=== PATIENT | female | born 1985 | race Two or more races ===

== ENCOUNTER → 2017-10-05 | Emergency (ER) | payer OTHER ==
[~2017-10-05] VITALS: Ht 162.6 cm; Wt 100.7 kg
[~2017-10-05] MED LIST: BUTALBITAL-ACE1 EAC1 PO; LEVOTHYROXINE88 MCG PO
== END | disposition home or self-care (01) ==
LOC: ER 14:14
DX: I10 Essential (primary) hypertension (principal); G43.909 Migraine, unspecified, not intractable, without status migrainosus

== ENCOUNTER 2018-06-21 02:48 | Emergency (ER) | payer OTHER ==
[~2018-06-21] VITALS: Ht 162.6 cm; Wt 97.5 kg
[2018-06-21] MEDS ORDERED: INTESTINEX680 M1 PO (09:16)
[2018-06-21] MEDS ORDERED: ZANTAC150 MG PO (09:16)
== END 2018-06-21 22:21 | disposition home or self-care (01) ==
LOC: ER 02:48
DX: K29.70 Gastritis, unspecified, without bleeding (principal)

== ENCOUNTER 2019-05-07 07:20 | Inpatient (IN) | payer OTHER ==
[~2019-05-07] VITALS: Ht 162.6 cm; Wt 96.2 kg
[~2019-05-07 07:20] MED LIST changes: +INTESTINEX680 M1 PO; +ZANTAC150 MG PO
--- NOTE | 2019-05-07 07:30 | NUR ---
SE RECIBE PTE ALERTA Y ORIENTADA X3,REFIERE ERICK TENIOD EMESIS X5 DESDE LA 1 AM,REFIERE DOLORABDOMINAL,FUE AL CDT LE DIERON PHENERGAN ,ZANTAC ,PREVACID A LAS 3 AM REFIERE QUE TUVO 2 VOMITOS DESPUES DE LOS MEDICAMENTOS EL DOLOR ABDOMINAL PERSISTE.
--- NOTE | 2019-05-07 08:28 | NUR ---
MRS ZAMUDIO ORIENTA A PT SOBRE ORDENES MEDICAS, LA CUAL REFIERE ENTENDER. SE LE COLECTAN MUESTRAS, SE CANALIZA Y SE LE ADMINISTRAN MEDICAMENTOS BAJO MEDIDAS ASEPTICAS PT TOLERA.
== END 2019-05-11 09:57 | disposition home or self-care (01) | DRG 446 ==
LOC: ER 07:20 → SURH 13:37 → SEC-K 13:37 → SURH 14:17
PROVIDERS: ADMIT Internal Medicine Hematology & Oncology
PROC: BW21ZZZ Computerized Tomography (CT Scan) of Abdomen and Pelvis (ICD-10-PCS; 2019-05-07)
PROC: BF37ZZZ Magnetic Resonance Imaging (MRI) of Pancreas (ICD-10-PCS; principal; 2019-05-09)
DX: K80.00 Calculus of gallbladder with acute cholecystitis without obstruction (principal); E03.8 Other specified hypothyroidism; Z88.6 Allergy status to analgesic agent

== ENCOUNTER 2019-05-23 08:21 | Outpatient (CLI) | payer OTHER | END 2019-05-23 08:36 | disposition home or self-care (01) | LOC: NUCLEAR 08:21 | DX: K80.00 Calculus of gallbladder with acute cholecystitis without obstruction (principal) | CPT/HCPCS: 78227; A9537 ==

== ENCOUNTER 2022-10-18 23:18 | Emergency (ER) | payer OTHER ==
[~2022-10-18] VITALS: Ht 162.6 cm; Wt 106.6 kg
== END 2022-10-19 03:43 | disposition home or self-care (01) ==
LOC: ER 23:18
DX: R20.0 Anesthesia of skin (principal); Z88.6 Allergy status to analgesic agent; Z88.8 Allergy status to other drugs, medicaments and biological substances; Z20.822 Contact with and (suspected) exposure to COVID-19

== ENCOUNTER 2022-10-21 18:35 | Emergency (ER) | payer OTHER ==
[~2022-10-21] VITALS: Ht 162.6 cm; Wt 106.6 kg
== END 2022-10-21 20:11 | disposition home or self-care (01) ==
LOC: ER 18:35
DX: F41.9 Anxiety disorder, unspecified (principal); Z88.6 Allergy status to analgesic agent; Z88.8 Allergy status to other drugs, medicaments and biological substances; Z98.890 Other specified postprocedural states